=== PATIENT | female | born 1980 | race African-American/Black ===

== ENCOUNTER 2017-05-09 12:22 | Emergency (ER) | payer OTHER ==
[~2017-05-09] VITALS: Ht 157.5 cm; Wt 55.0 kg
[~2017-05-09 12:22] MED LIST: METH750T2 PO; TYLE500T PO
[2017-05-09 12:24] VITALS: BP 118/67; PULSE 84; RESP 12; TEMP 99; O2SAT 100
--- NOTE | 2017-05-09 13:41 | PD ---
HPI Chief Complaint: Abdominal Pain Time Seen by Provider: 13:24 Travel History International Travel<30 days: No Contact w/Intl Traveler<30days: No Traveled to known affect area: No History of Present Illness HPI The patient was seen and examined in the presence of the nurse. This patient complains of one to 2 weeks of pelvic pain. Location is left lower quadrant. Severity is moderate. She is not having vaginal bleeding. She is sexually active and not using protection. No vomiting or diarrhea or fever. No alleviating factors. No exacerbating factors. PFSH Past Medical History Anxiety: Yes Heart Rhythm Problems: Yes (PALPATATIONS) Cardiovascular Problems: Yes (MITRAL VALVE PROLAPSE) Diminished Hearing: No Headaches: Yes ?: LMP: 04/06/17 : 4 Para: 3 Miscarriage: 1 : 1 Social History Alcohol Use: Yes (occ.) Tobacco Use: No Substance Use: No Allergies-Medications (Allergen,Severity, Reaction): Coded Allergies: No Known Allergies (Verified Adverse Reaction, Unknown, 05/09/17) Reported Meds & Prescriptions Reported Meds & Active Scripts Active Robaxin (Methocarbamol) 750 Mg Tab 1,500 Mg PO TID Reported Tylenol (Acetaminophen) 500 Mg Tab 1,000 Mg PO DIRECTED Review of Systems General / Constitutional: No: Fever Eyes: No: Visual changes HENT: No: Headaches Cardiovascular: No: Chest Pain or Discomfort Respiratory: No: Shortness of Breath Gastrointestinal: No: Abdominal Pain Genitourinary: Positive: Pelvic Pain, No: Dysuria Musculoskeletal: No: Pain Skin: No Rash Neurologic: No: Weakness Psychiatric: No: Depression Endocrine: No: Polydipsia Hematologic/Lymphatic: No: Easy Bruising Physical Exam Narrative GENERAL: Well-nourished, well-developed patient in no apparent distress. SKIN: Focused skin assessment reveals no rash and nodules. Skin is Warm and dry. HEAD: Atraumatic. Normocephalic. EYES: Pupils equal and round. No scleral icterus. No injection or drainage. ENT: No nasal bleeding or discharge. Mucous membranes pink and moist. NECK: Trachea midline. No JVD. CARDIOVASCULAR: Regular rate and rhythm. No murmur appreciated. RESPIRATORY: No accessory muscle use. Clear to auscultation. Breath sounds equal bilaterally. GASTROINTESTINAL: Abdomen soft, some left lower quadrant tenderness without rebound or guarding, nondistended. Hepatic and splenic margins not palpable. MUSCULOSKELETAL: No obvious deformities. No clubbing. No cyanosis. No edema. NEUROLOGICAL: Awake and alert. No obvious cranial nerve deficits. Motor grossly within normal limits. Normal speech. PSYCHIATRIC: Appropriate mood and affect; insight and judgment normal. Data Data Last Documented VS Vital Signs Date Time Temp Pulse Resp B/P (MAP) Pulse Ox O2 Delivery O2 Flow Rate FiO2 05/09/17 12:24 99.0 84 12 118/67 (84) 100 Orders Orders Complete Blood Count With Diff (05/09/17 12:51) Ed Urine Pregnancytest Poc (05/09/17 12:51) Beta Hcg (Quant/Titer) (05/09/17 13:35) Us Pelvis (Ques Pr/Ect)W Trans (05/09/17 ) Labs Laboratory Tests Test 05/09/17 13:12 White Blood Count 7.1 TH/MM3 Red Blood Count 3.99 MIL/MM3 Hemoglobin 12.1 GM/DL Hematocrit 36.1 % Mean Corpuscular Volume 90.4 FL Mean Corpuscular Hemoglobin 30.3 PG Mean Corpuscular Hemoglobin Concent 33.5 % Red Cell Distribution Width 14.4 % Platelet Count 397 TH/MM3 Mean Platelet Volume 7.9 FL Neutrophils (%) (Auto) 59.8 % Lymphocytes (%) (Auto) 27.0 % Monocytes (%) (Auto) 12.0 % Eosinophils (%) (Auto) 0.6 % Basophils (%) (Auto) 0.6 % Neutrophils # (Auto) 4.3 TH/MM3 Lymphocytes # (Auto) 1.9 TH/MM3 Monocytes # (Auto) 0.9 TH/MM3 Eosinophils # (Auto) 0.0 TH/MM3 Basophils # (Auto) 0.0 TH/MM3 CBC Comment DIFF FINAL Differential Comment Human Chorionic Gonadotropin, Quant 836 MIU/ML [facility] Medical Decision Making Medical Screen Exam Complete: Yes Emergency Medical Condition: Yes Medical Record Reviewed: Yes Differential Diagnosis Ectopic, colitis, PID Narrative Course I have reviewed the patient's electronic medical record. Urine is positive I did a bedside transabdominal ultrasound but I cannot identify definitively an intrauterine fetus CBC is normal Beta hCG is in the 800s Formal radiology ultrasound reveals no evidence of IUP and no ectopic-like mass in the adnexa. There is an ovarian cyst. Patient is basically asymptomatic with soft benign nontender abdomen We discussed at length ectopic precautions She will follow-up with [facility] as soon as she can arrange She is going to come back in 48 hours for repeat beta hCG to see if it increased by 66% as expected in a normal healthy developing Diagnosis Primary Impression: Pelvic pain affecting in first trimester, antepartum Additional Instructions: Follow-up with [facility] Return Saturday afternoon for repeat beta hCG testing Use ectopic precautions Med/Other Pt SpecificInfo: Other Disposition: 01 DISCHARGE HOME Condition: Stable Louis Fowler MD May 09, 2017 13:41
[2017-05-09 14:01] LABS: AUTOMATED NEUTROPHIL # 4.3 TH/MM3 (1.8-7.7); BASOPHIL % 0.6 % (0.0-2.0); EOSINOPHIL % 0.6 % (0.0-4.0); HEMATOCRIT 36.1 % (35.0-46.0); HEMOGLOBIN 12.1 GM/DL (11.6-15.3); LYMPHOCYTE # 1.9 TH/MM3 (1.0-4.8); MEAN CELL VOLUME 90.4 FL (80.0-100.0); MEAN CORPUSCULAR HEMOGLOBIN 30.3 PG (27.0-34.0); MEAN CORPUSCULAR HGB CONC 33.5 % (32.0-36.0); MEAN PLATELET VOLUME 7.9 FL (7.0-11.0); MONOCYTE # 0.9 TH/MM3 (0-0.9); NEUT % 59.8 % (16.0-70.0); PLATELET COUNT 397 TH/MM3 (150-450); RED BLOOD COUNT 3.99 MIL/MM3 (4.00-5.30); RED CELL DISTRIBUTION WIDTH 14.4 % (11.6-17.2); WHITE BLOOD COUNT 7.1 TH/MM3 (4.0-11.0)
--- NOTE | 2017-05-09 16:21 | RADRPT ---
EXAM DATE/TIME: 05/09/2017 15:14 [place] COMPARISON: No previous studies available for comparison. INDICATIONS : Pelvic pain. LAB(S): Beta-hC MEDICAL HISTORY : . Mitral valve prolapse. Palpilations. Anxiety. SURGICAL HISTORY : None. ENCOUNTER: Initial ACUITY: 2 weeks PAIN SCORE: 9/10 LOCATION: Bilateral pelvis MEASUREMENTS: LEFT OVARY: 2.0 x 2.6 x 2.0 cm UTERUS: 10.0 x 7.0 x 5.1 cm ENDOMETRIAL STRIPE: 11 mm RIGHT OVARY: 5.4 x 5.2 x 4.7 cm FREE FLUID: No FINDINGS: UTERUS: No intrauterine gestation is identified. Uterus is focally unremarkable. RIGHT OVARY: Slightly less than 5 cm simple appearing cyst. LEFT OVARY: Ovary contains no mass or significant cystic lesion. MISCELLANEOUS: No free fluid. CONCLUSION: No evidence of IUP. Right ovarian cyst. Justin Kuo MD on May 09, 2017 at 16:18 Board Certified Radiologist. This report was verified electronically.
== END 2017-05-09 17:07 | disposition home or self-care (01) ==
LOC: NEPD 12:22
DX: O26.891 Other specified pregnancy related conditions, first trimester (principal); R10.2 Pelvic and perineal pain; R00.2 Palpitations
CPT/HCPCS: 76700; 76817; 84702; 84703; 85025; 99284